=== PATIENT | female | born 1995 | race Caucasian/White ===

== ENCOUNTER 2018-12-02 16:33 | Emergency (ER) | payer MEDICAID ==
[~2018-12-02] VITALS: Ht 172.7 cm; Wt 95.2 kg
[2018-12-02] MEDS ORDERED: DIPHENHYDR50 MG/1 M2 IJ (17:17)
[2018-12-02] MEDS ORDERED: PROMETHAZINE HC25 M1 PO (17:18)
[2018-12-02] MEDS ORDERED: ZOFRAN8 MG PO (17:19)
== END 2018-12-02 22:14 | disposition short-term general hospital (02) ==
LOC: ED 16:33
DX: E80.21 Acute intermittent (hepatic) porphyria (principal); Z88.6 Allergy status to analgesic agent; Z88.0 Allergy status to penicillin
CPT/HCPCS: 80053; 81001; 83690; 85025; 96361; 96374; 96375; 96376; 99284-25; J1170; J1200; J2270; J2405; J7042